=== PATIENT | female | born 1960 | race Caucasian/White ===

== ENCOUNTER 2022-05-31 11:02 | Emergency (ER) | payer BC ==
[~2022-05-31] VITALS: Ht 182.9 cm; Wt 62.1 kg
--- NOTE | 2022-05-31 11:14 | NUR ---
[id number] C/O GEN WEAKNESS 30 MINS AGO AT URGENT CARE. PT ALSO C/O SOB O2SAT 97% NO DRIFT, DROOP OR UNILATERAL WEAKNESS NOTED. PLACED IN BED, AAOX3, BREATHING EVEN AND UNLABORED SATURATING AT 98%RA, BP- 121/91, NM-70.
--- NOTE | 2022-05-31 11:16 | NUR ---
AT BEDSIDE FOR EVAL.
--- NOTE | 2022-05-31 11:43 | NUR ---
Patient does not wish to proceed with medical care recommended by Dr. MATHEWS. Patient given information related to possible complications, up to and including , which could occur as a result of leaving the hospital at this time. Patient verbalizes understanding of risks involved due to leaving against medical advice. Patient has signed AMA form.
[2022-05-31 11:47] VITALS: BP 121/91
== END 2022-05-31 11:47 | disposition left against medical advice (07) ==
LOC: ER 11:10
DX: R55 Syncope and collapse (principal); R06.2 Wheezing